=== PATIENT | male | born 1985 | race Caucasian/White ===

== ENCOUNTER → 2017-06-24 07:28 | Outpatient (CLI) | payer BC, SELFPAY ==
[2017-06-24 08:51] LABS: Cholesterol 125 mg/dL (200); Glucose 95 mg/dL (74-106); High Density Lipoprotein 37 mg/dL; Triglycerides 32 mg/dL; Very Low Density Lipoprotein 6 mg/dL (5-40)
== END ==
PROVIDERS: Family Provider Preventive Medicine Occupational Medicine; PCP Preventive Medicine Occupational Medicine; Visit Provider Preventive Medicine Occupational Medicine
DX: Z00.00 Encounter for general adult medical examination without abnormal findings (principal)
CPT/HCPCS: 36415; 80061; 82947

== ENCOUNTER 2019-01-09 21:57 | Emergency (ER) | payer OTHER, SELFPAY ==
[2019-01-09 21:58] VITALS: BP 114/76; PULSE 91; RESP 16; TEMP 37.7; O2SAT 96; BMI 28.7
--- NOTE | 2019-01-09 22:44 | ED.VIS.GEN ---
History of Present Illness Chief Complaint: Complaint Informant: Patient Onset: Days Context: Gradual Onset Timing: Continuous Narrative: Patient is a 33-year-old male with no past medical history presenting with worsening myalgias, dry skin and dysuria. Patient states he has had a symptoms for the past few days but is been worsening. He states the myalgias started first. Initially he thought it was just from working out but they have continued. Patient states he has pain from his head to his feet. He notes he has pain when he urinates but denies any hematuria or penile discharge. He denies associated fever but does report chills. No rash. No chest pain, shortness of breath or difficulty breathing. No cough or upper respiratory symptoms. No nausea, vomiting or bowel changes. Patient notes he was hunting with his dog and the dog had a lot of ticks on it but patient was unaware of any tick bites. Patient also states he was started on a water pill recently for his ears. He is not sure what it was but thinks it was started with a tea. He does report a history of kidney stones but states this does not feel like his prior kidney stones. He also states his doctor told him at one point he had a medullary sponge kidney. Patient has not taken anything for his pain prior to arrival. Prior similar symptoms: No Recent Illness/Hospitalization: No Past Medical History - Allergies and Home Meds Allergies/Adverse Reactions: Allergies No Known Allergies Allergy (Verified 01/09/19 21:59) Primary Care Physician: Jluis Pierce DO [Primary Care Provider] - Past Medical History: - - Medullary sponge kidney, kidney stones Surgical History: - - Facial surgery Smoking Status: Former smoker Review of Systems General: Reports: Chills, Malaise. Denies: Fever, Sweats Eyes: Denies: Visual changes - bilaterally, Diplopia ENT: Denies: Rhinorrhea, Sore throat Cardiovascular: Denies: Chest pain, Palpitations Respiratory: Denies: Dyspnea, Cough, Dyspnea on exertion Gastrointestinal: Denies: Abdominal pain, Nausea, Vomiting, Diarrhea, Melena, Hematochezia Genitourinary: Reports: Dysuria. Denies: Hematuria, Frequency Musculoskeletal: Reports: Myalgias. Denies: Arthralgias, Neck pain, Back pain, Swelling, Extremity Pain Skin: Reports: - - Dry skin. Denies: Rash, Wounds Neurological: Denies: Headache, Weakness, Numbness Physical Exam Vital Signs/Narrative: Vital Signs Temp Pulse Resp BP Pulse Ox 01/09/19 21:58 99.9 F H 91 16 114/76 96 Inital Vital Signs reviewed: Yes General: Well nourished, Well developed, No Acute Distress Head: Normocephalic, Atraumatic Eyes: Perrl, EOMI ENT: Moist mucous membranes, No rhinorrhea, TM's clear Neck: Supple, Nontender Cardiovascular: Regular rate, Regular rhythm, No murmurs Respiratory: No distress, CTA bilaterally, Chest nontender Abdomen: Soft, Nontender, Nondistended, Normal bowel sounds Back: Nontender, Normal Inspection. Negative for: CVA tenderness Extremities: Nontender, No edema Skin: Normal color, No rash Neurological: Alert, Oriented x3, Cranial nerves II-XII grossly intact, Normal Strength, Normal Sensation Psychological: Normal affect, Normal Mood Diagnostic/Tx/Re-eval Laboratory Data 01/09/19 01/09/19 01/09/19 22:55 22:55 22:55 WBC 13.5 H RBC 5.06 Hgb 14.9 Hct 44.8 MCV 88.5 MCH 29.4 MCHC 33.3 RDW Std Deviation 40.5 RDW Coeff of Marquis 12.4 Plt Count 309 MPV 10.3 Immature Gran % (Auto) 0.200 Neut % (Auto) 78.7 H Lymph % (Auto) 10.9 L [place] % (Auto) 9.7 Eos % (Auto) 0.2 Baso % (Auto) 0.3 Absolute Neuts (auto) 10.6 H Absolute Lymphs (auto) 1.46 Nucleated RBC % 0 Sodium 140 Potassium 3.6 Chloride 105 Carbon Dioxide 26.0 Anion Gap 9 BUN 21 H Creatinine 1.18 Estim Creat Clear Calc 91.94 Est GFR (MDRD) Af Amer 91 Est GFR (MDRD) Non-Af 76 BUN/Creatinine Ratio 17.8 Glucose 96 Calcium 9.0 Total Creatine Kinase 231 Urine Color Urine Clarity Urine pH Ur Specific [place] Urine Protein Urine Glucose (UA) Urine Ketones Urine Occult Blood Urine Nitrite Urine Bilirubin Urine Urobilinogen Ur Leukocyte Esterase Urine RBC Urine WBC Ur Squamous Epith Cells Urine Bacteria Urine Mucus Chlam trachomat DNA PCR N.gonorrhoeae DNA (PCR) 11/20/19 11/20/19 22:55 22:55 WBC RBC Hgb Hct MCV MCH MCHC RDW Std Deviation RDW Coeff of Marquis Plt Count MPV Immature Gran % (Auto) Neut % (Auto) Lymph % (Auto) [place] % (Auto) Eos % (Auto) Baso % (Auto) Absolute Neuts (auto) Absolute Lymphs (auto) Nucleated RBC % Sodium Potassium Chloride Carbon Dioxide Anion Gap BUN Creatinine Estim Creat Clear Calc Est GFR (MDRD) Af Amer Est GFR (MDRD) Non-Af BUN/Creatinine Ratio Glucose Calcium Total Creatine Kinase Urine Color Yellow Urine Clarity Clear Urine pH 8.0 Ur Specific [place] 1.015 Urine Protein 15 H Urine Glucose (UA) Normal Urine Ketones 5 H Urine Occult Blood Negative Urine Nitrite Negative Urine Bilirubin Negative Urine Urobilinogen 4 H Ur Leukocyte Esterase 100 H Urine RBC 0 SEEN Urine WBC 25-50 SEEN Ur Squamous Epith Cells 0-5 SEEN Urine Bacteria 1+ Urine Mucus 1+ Chlam trachomat DNA PCR Negative N.gonorrhoeae DNA (PCR) Negative - Medical Decision Making Patient is evaluated for dysuria and myalgias. He appears nontoxic and in no acute distress. Vital signs are grossly normal. Patient is well-appearing his abdomen is soft. Is not have any CVA tenderness. Patient denies any testicular pain or penile discharge. exam is deferred. Urinalysis does show leuk esterase as well as 1+ bacteria. This is consistent with his presentation and patient be treated for urinary tract infection. Urine culture sent. Gonorrhea and Chlamydia are negative. Patient has normal kidney function. He has a very minimally elevated white blood cell count. Patient is placed on a 7-day course of antibiotics which should also cover for pyelonephritis. It also possible the patient has a viral illness that is contributing to his generalized myalgias. Patient does not have any CVA tenderness. His abdomen is soft. Do not suspect ureterolithiasis or any acute intra-abdominal pathology. He is otherwise well-appearing. He is given a dose of Toradol and fluids for symptom control. Patient is given first dose of antibiotics in the emergency room. Patient is encouraged to rest and drink lots of fluids over the next few days. Patient is counseled on signs and symptoms requiring return to the emergency room. Patient verbalizes agreement and understand this plan. Patient discharged home in stable and improved condition. ED Disposition - Plan for ED Patient: Disposition: Home or Assisted Living Diagnosis: UTI (urinary tract infection), Myalgia Instructions: Bladder Infection, Male (Adult) Prescriptions: Cephalexin [Keflex] 500 mg PO Q12 #14 cap Prescription Printed Ibuprofen [Motrin] 600 mg PO Q8H PRN PRN #20 tab PRN Reason: Pain Or Fever Prescription Printed Referrals: Jluis Pierce DO [Primary Care Provider] - Additional Instructions: You have been diagnosed with a urinary tract infection. A culture has been sent. You will be contacted if we need to switch your antibiotics. Follow-up with your primary care doctor in the next few days. Drink plenty fluids. Take the Motrin as needed for your muscle aches and pains. Return the emergency room with any worsening symptoms.
[2019-01-09] MEDS: 0.9% Normal Saline 1,000 ML 1000 ML IV (22:57)
[2019-01-09 23:06] LABS: Red Blood Cells-Urine 0 SEEN /hpf (0-5)
[2019-01-09 23:08] LABS: Absolute Lymphocyte Count 1.46 X10^3/uL (0.83-4.51); Absolute Neutrophil Count 10.6 X10^3/uL (2.0-7.7); Basophil# 0.04 X10^3/uL; Basophil% 0.3 % (0-1); Eosinophil# 0.03 X10^3/uL; Eosinophils% 0.2 % (0-5); Hematocrit 44.8 % (40-54); Hemoglobin 14.9 g/dL (13.0-16.5); Lymphocyte # 1.46 X10^3/ul (4.0); Lymphocyte % 10.9 % (19-41); Mean Corp Hgb Conc 33.3 g/dL (32-36); Mean Corpuscular Hgb 29.4 pg (27.0-32.0); Mean Corpuscular Volume 88.5 fL (80-94); Mean Platelet Vol. 10.3 fl (6.2-12.0); Monocyte% 9.7 % (0-10); NRBC Flagged by Analyzer 0 % (0-5); Neutrophil # 10.59 X10^3/uL (2.7-7.7); Neutrophil % 78.7 % (47-70); Platelet Count 309 K/mm3 (150-450); RBC Distribution Width CV 12.4 % (11.6-14.6); RBC Distribution Width SD 40.5 fl (35.1-43.9); Red Blood Count 5.06 M/mm3 (4.6-6.2); White Blood Count 13.5 K/mm3 (4.4-11.0)
[2019-01-09 23:24] LABS: CPK Total, Creatine Kinase 231 U/L (39-308)
[2019-01-09 23:28] LABS: Color, Urine Yellow (Yellow); Glucose, Dipstick Normal (Normal); Ketone-Dipstick 5 mg/dl (Negative); Leukocyte Esterase-Dipstick 100 /ul (Negative); Nitrite-Dipstick Negative (Negative); Occult Blood-Urine Negative /ul (Negative); Protein-Dipstick 15 mg/dl (Negative); Specific Gravity, Urine 1.015 (1.002-1.030); Urine Bilirubin Dipstick Negative (Negative); Urine Clarity Clear (Clear); Urine Urobilinogen 4 mg/dl (Normal)
[2019-01-09 23:29] LABS: Anion Gap 9 (5-15); BUN 21 mg/dL (7-18); BUN/Creat Ratio 17.8 RATIO (10-20); Chloride 105 mmol/L (98-107); Creatinine, Serum 1.18 mg/dL (0.70-1.30); EST Glomerular Filtration Rate 76 mL/min (>60); Est Glom Filt Rate - Afr Amer 91 mL/min (>60); Estimated Creatinine Clearance 91.94 ml/min; Glucose 96 mg/dL (74-106); Potassium 3.6 mmol/L (3.5-5.1); Sodium Level 140 mmol/L (136-145)
--- NOTE | 2019-01-10 00:11 | ED.RN ---
SPOKE WITH LAB ABOUT BACK HALF OF URINE NOT RESULTED, SHE WILL LOOK INTO RESULTS.
[2019-01-10 00:15] LABS: Bacteria 1+ /hpf (None Seen); Mucous, Urine 1+ /hpf (<or=2+); Squamous Epithelial Cells - UA 0-5 SEEN /hpf (0-5); White Blood Cells 25-50 SEEN /hpf (0-5)
[2019-01-10] MEDS: Ketorolac 15 MG/ML Vial IV (00:17)
[2019-01-10 00:19] VITALS: BP 127/68; PULSE 81; RESP 16; O2SAT 98
[2019-01-10 00:58] LABS: Chlamydia Trachomatis by PCR Negative (Negative); Neisserai gonorrhoeae by PCR Negative (Negative); Probe Check PASS; Sample Adequacy Control PASS; Specimen Processing Control PASS
[2019-01-10 01:10] VITALS: BP 110/69; PULSE 79; RESP 16; O2SAT 96
[2019-01-10] MEDS: Cephalexin 250 MG Capsule 500 MG PO (01:12)
== END 2019-01-10 01:12 | disposition home or self-care (01) ==
PROVIDERS: Emergency Provider Emergency Medicine; Family Provider Preventive Medicine Occupational Medicine; PCP Preventive Medicine Occupational Medicine
DX: N39.0 Urinary tract infection, site not specified (principal); M79.10 Myalgia, unspecified site; Q61.5 Medullary cystic kidney; Z87.442 Personal history of urinary calculi; Z87.891 Personal history of nicotine dependence
CPT/HCPCS: 80048; 81001; 82550; 85025; 87086; 87088; 87491; 87591; 96361; 96374; 99284; J7030; A4216

== ENCOUNTER 2019-01-10 18:47 | Emergency (ER) | payer OTHER, SELFPAY ==
[2019-01-09 21:58] VITALS: BMI 28.7
[2019-01-10 18:48] VITALS: BP 128/70; PULSE 102; RESP 16; TEMP 36.4; O2SAT 95; BMI 28.7
[2019-01-10 18:56] VITALS: BP 120/70; PULSE 95; RESP 14; TEMP 36.1; O2SAT 98
[2019-01-10 19:31] LABS: Absolute Lymphocyte Count 0.71 X10^3/uL (0.83-4.51); Absolute Neutrophil Count 14.7 X10^3/uL (2.0-7.7); Basophil# 0.02 X10^3/uL; Basophil% 0.1 % (0-1); Hematocrit 40.1 % (40-54); Hemoglobin 13.5 g/dL (13.0-16.5); Lymphocyte # 0.71 X10^3/ul (4.0); Lymphocyte % 4.3 % (19-41); Mean Corp Hgb Conc 33.7 g/dL (32-36); Mean Corpuscular Hgb 29.9 pg (27.0-32.0); Mean Corpuscular Volume 88.7 fL (80-94); Mean Platelet Vol. 10.2 fl (6.2-12.0); Monocyte# 1.09 X10^3/uL; Monocyte% 6.6 % (0-10); NRBC Flagged by Analyzer 0 % (0-5); Neutrophil # 14.65 X10^3/uL (2.7-7.7); Neutrophil % 88.4 % (47-70); POSITIVE MORPHOLOGY YES; Platelet Count 240 K/mm3 (150-450); RBC Distribution Width CV 12.3 % (11.6-14.6); RBC Distribution Width SD 40.5 fl (35.1-43.9); Red Blood Count 4.52 M/mm3 (4.6-6.2); White Blood Count 16.6 K/mm3 (4.4-11.0)
[2019-01-10 19:35] LABS: Differential Indicated SCAN CRITERIA MET
[2019-01-10] MEDS: Acetaminophen 500 MG Tablet 1000 MG PO (19:35)
[2019-01-10] MEDS: 0.9% Normal Saline 1,000 ML 1000 ML IV ×2 (19:35→21:26)
[2019-01-10 19:46] LABS: Anion Gap 6 (5-15); BUN 16 mg/dL (7-18); BUN/Creat Ratio 16.1 RATIO (10-20); Chloride 108 mmol/L (98-107); Creatinine, Serum 0.99 mg/dL (0.70-1.30); EST Glomerular Filtration Rate 92 mL/min (>60); Est Glom Filt Rate - Afr Amer 112 mL/min (>60); Estimated Creatinine Clearance 109.58 ml/min; Glucose 131 mg/dL (74-106); Potassium 3.6 mmol/L (3.5-5.1); Sodium Level 139 mmol/L (136-145)
--- NOTE | 2019-01-10 19:47 | ED.VISSUMM ---
- ER Visit Summary Date of Service: 01/10/19 Chief Complaint: Generalized pain History of Present Illness: The patient is a 33 M who presents with generalized pain that is been getting worse over the past couple days. Patient states he was seen here last night and diagnosed with a urinary tract infection. Patient states he has been taking his antibiotics as prescribed. Patient states the has generalized aching. Patient denies any fevers or chills but does admit to some sweats today. Patient admits to nausea but denies any vomiting. Patient admits to some dysuria but denies any hematuria. Physical Examination: Vital signs are stable. Patient is afebrile. Patient is in no acute distress. Oral mucosa is pink and moist. Neck is supple. Trachea is midline. There is no JVD. Heart was regular rate and rhythm. Lungs are clear and equal bilaterally. Abdomen is soft. Bowel sounds are normal. There is no tenderness. There is no guarding or rebound noted. Cranial nerves II through XII are intact. There are no focal motor or sensory deficits noted. Test Results: CBC showed leukocytosis of 16.6. Basic metabolic profile was essentially within normal limits. Lactate was obtained and was normal. Emergency Department Course and Treatment: Patient was given IV fluids. Patient was still having some pain and discomfort after 1 L of fluids. Patient was given a second liter. Patient was also given a dose of Rocephin. Patient felt better after this. Patient was instructed to drink plenty of fluids. Patient was instructed to continue his antibiotics as prescribed until gone. Patient was instructed to follow-up with his primary care physician in 3 to 5 days. Patient understood and was agreeable with the plan. All questions were answered. Disposition: Discharge home Impression: 1. Myalgias 2. Urinary tract infection This note was generated with [email or web address] dictation software. It may contain incorrect words, spelling, and punctuation that were not noted in review of the chart prior to signing ED Disposition - Plan for ED Patient: Disposition: Home or Assisted Living Diagnosis: UTI (urinary tract infection), Myalgia Instructions: Bladder Infection, Male (Adult) Referrals: Jluis Pierce DO [Primary Care Provider] - 3-5 Days
[2019-01-10 20:00] LABS: Platelet Estimate ADEQUATE (ADEQ)
[2019-01-10 20:01] LABS: Red Cell Morphology NORM C+C NORMAL (NORM C&C)
[2019-01-10] MEDS: Ketorolac 30 MG/ML Syringe IV (21:18)
[2019-01-10] MEDS: Ceftriaxone 1 GM/50 ML BAG IV (21:19)
[2019-01-10 21:40] LABS: Lactic Acid 0.8 mmol/L (0.4-2.0)
[2019-01-10 22:40] VITALS: BP 115/70; PULSE 92; RESP 16; O2SAT 98
[2019-01-11 10:53] LABS: Pathologist Review Reviewed
== END 2019-01-10 22:44 | disposition home or self-care (01) ==
PROVIDERS: Emergency Provider Emergency Medicine; Family Provider Preventive Medicine Occupational Medicine; PCP Preventive Medicine Occupational Medicine
DX: M79.10 Myalgia, unspecified site (principal); N39.0 Urinary tract infection, site not specified; R05 Cough
CPT/HCPCS: 80048; 83605; 85025; 96361; 96365; 96375; 99283; J7030; A4216

== ENCOUNTER 2021-03-24 16:32 | Outpatient (CLI) | payer OTHER, SELFPAY ==
--- NOTE | 2021-03-24 16:41 | MRI_ITS ---
STUDY: MRI BRAIN WITH AND WITHOUT CONTRAST REASON FOR EXAM: Male, 35 years old. HEADACHES X 2 MONTHS TECHNIQUE: Standardized multiplanar fat and water weighted pulse sequences were obtained. 18ML IV DOTAREM was administered for the contrast portion of the examination. COMPARISON: None. FINDINGS: Normal size of the ventricles and extra-axial spaces for the patient''s age. Normal white matter tracts of the supratentorial brain. Normal bilateral basal ganglia. Normal thalami. There is no extra-axial fluid accumulation. Normal flow voids within the major intracranial circulation suggesting patency by spin echo criteria. Normal venous enhancement. There is no enhancing intra-axial or extra-axial abnormality. Normal sella turcica, pituitary gland, infundibular stalk, optic chiasm and hypothalamus. Normal tectal plate and pineal gland. Normal midbrain, abraham and medulla. Normal cerebellum. Normal basal cisterns. MRI/Brain W/WO Contrast IMPRESSION: Unremarkable unenhanced and enhanced MRI of the brain. Electronically Signed: Armida Caceres MD at 15:54 EST ,
== END 2021-03-24 23:59 | disposition short-term general hospital (02) ==
PROVIDERS: PCP Preventive Medicine Occupational Medicine; Visit Provider Psychiatry & Neurology Neurology
DX: R51.9 Headache, unspecified (principal)
CPT/HCPCS: 70553; A9575

== ENCOUNTER → 2021-11-17 | Outpatient (CLI) | payer OTHER, SELFPAY ==
--- NOTE | 2021-11-17 09:32 | NM_ITS ---
CLINICAL: 35-year-old male with history of low back discomfort. WHOLE BODY 99m Tc MDP RADIONUCLIDE BONE SCINTIGRAPHY COMPARISON: None available FINDINGS: Following the intravenous administration of 27.0 mCi of 99m Tc MDP, whole body bone images reveal: 1. Mild symmetric radiopharmaceutical concentration is defined in the acromioclavicular compartments of both shoulders, subtly defined in the patellofemoral compartment of the right knee, the bilateral hands. 2. The remaining skeletal structures are scintigraphically unremarkable with normal-appearing renal images and urinary bladder activity identified. NM/Bone Scan Whole Body IMPRESSION: 1. 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 2. No other scintigraphic abnormalities are defined with meticulous attention paid to the thoracic lumbar spine. Electronically Signed: Angel Fu, at 22:09 EDT ,
== END | disposition home or self-care (01) ==
PROVIDERS: PCP Preventive Medicine Occupational Medicine
DX: M51.36 Other intervertebral disc degeneration, lumbar region (principal)
CPT/HCPCS: 78306; A9503

== ENCOUNTER 2022-02-14 08:49 | Observation (INO) | payer OTHER, SELFPAY ==
[2022-02-14] VITALS (10 sets, daily range): BP systolic 111–133; BP diastolic 69–80; PULSE 58–70; RESP 12–18; TEMP 36.4–36.7; O2SAT 97–100; BMI 28.5; BMI 26.6
--- NOTE | 2022-02-14 08:58 | RAD_ITS ---
EXAM: XR CHEST, 1 VIEW CLINICAL INDICATION: Neuro deficit, acute, stroke suspected TECHNIQUE: Frontal view of the chest. This report was created using [employer] report generation technology. COMPARISON: 10/08/2013. FINDINGS: LUNGS AND PLEURAL SPACES: The lungs are clear. No pneumothorax. No effusion. HEART: Unremarkable. Cardiac silhouette not enlarged. MEDIASTINUM: Central airways and mediastinal contour are unremarkable. BONES/JOINTS: Unremarkable. SOFT TISSUES: Unremarkable. RAD/Chest 1 View IMPRESSION: Normal chest radiograph and unchanged since 10/08/2013. Electronically Signed: Mahad Matthew MD at 9:26 EST ,
--- NOTE | 2022-02-14 08:58 | CT_ITS ---
We are attempting to reach an attending provider to discuss findings. An addendum with communication details will be sent when the communication is complete. EXAM: CT HEAD WITHOUT INTRAVENOUS CONTRAST CLINICAL INDICATION: Neuro deficit, acute, stroke suspected -- Acute headache, unable to use left side, resolved TECHNIQUE: Multiple axial images were obtained of the head without intravenous contrast. This CT exam was performed using one or more of the following dose reduction techniques: automated exposure control, adjustment of the mA and/or kV according to patient size, and/or use of iterative reconstruction technique. This report was created using [employer] report Vokle technology. COMPARISON: None. FINDINGS: BRAIN AND EXTRA-AXIAL SPACES: Unremarkable. No intra- or extra-axial hemorrhage. No evidence of acute infarct. No intracranial mass or mass effect. There is preservation of the man/white matter interface. Posterior fossa structures are unremarkable. Ventricles are appropriate for age. No hydrocephalus. Basal cisterns are patent. BONES/JOINTS: Unremarkable. No discrete lytic or blastic abnormalities. SINUSES: Unremarkable as visualized. Clear. MASTOID AIR CELLS: Unremarkable. Clear. ORBITS: Visualized globes, extraocular muscles, optic nerves and retrobulbar fat appear unremarkable. CT/STROKE Brain/Head without Cont IMPRESSION: 1. Negative head/brain CT without intravenous contrast at this time. 2. Total ASPECTS score: 10/10. Electronically Signed: Mahad Matthew MD at 10:00 EST ,
--- NOTE | 2022-02-14 08:59 | CT_ITS ---
We are attempting to reach an attending provider to discuss findings. An addendum with communication details will be sent when the communication is complete. STUDY: CTA HEAD AND NECK WITH CONTRAST REASON FOR EXAM: Male, 36 years old. Neuro deficit, acute, stroke suspected RADIATION DOSAGE (If Supplied By Facility): CTDIvol = ( 23.23 ) mGy, DLP = ( 690.26 ) mGycm TECHNIQUE: CT angiography was performed with a multi-detector CT scanner. Data acquisition was obtained from the skull base through the vertex following intravenous administration of IV 100mL [id number]-[id number]. MIP images were reconstructed from the axial data set. Post-processing of the angiographic images was performed, with multiplanar reformation and 3D reconstruction. Individualized dose optimization techniques were used for this CT. COMPARISON: No relevant priors. FINDINGS: Normal bilateral petrous carotid arteries. Normal right cavernous carotid artery with a normal supraclinoid bifurcation. Normal left cavernous carotid artery with a normal supraclinoid bifurcation. Normal right A1 segment of the anterior cerebral artery. Normal left A1 segment of the anterior cerebral artery. Normal intact anterior communicating artery (ACOM). Normal bilateral A2 segments of the anterior cerebral arteries. Normal right M1 and M2 segments of the middle cerebral arteries, with a normal M1 bifurcation. Normal left M1 and M2 segments of the middle cerebral arteries, with a normal M1 bifurcation. No visible right posterior communicating artery (PCOM). No visible left posterior communicating artery (PCOM). Normal bilateral vertebral arteries. Normal basilar artery with a normal basilar bifurcation. The visualized bilateral superior cerebellar (SCA) arteries are normal. Normal bilateral P1, P2 and visualized P3 segments of the posterior cerebral arteries. There is no demonstrated aneurysm of the [place]. There is no demonstrated abnormality of the visualized brain. AORTIC ARCH: Normal visualized aortic arch. Normal origins of the brachiocephalic, left common carotid, and left subclavian arteries. RIGHT CAROTID ARTERIES: Normal right common carotid artery (CCA). Normal right carotid bulb. Normal origin of the right internal carotid (ICA) artery without a hemodynamically significant stenosis. Normal visualized cervical portion of the right internal carotid artery. Normal origin of the right external carotid artery (ECA). LEFT CAROTID ARTERIES: Normal left common carotid artery (CCA). Normal left carotid bulb. Normal origin of the left internal carotid (ICA) artery without a hemodynamically significant stenosis. Normal visualized cervical portion of the left internal carotid artery. Normal origin of the left external carotid artery (ECA). VERTEBRAL ARTERIES: Normal bilateral vertebral arteries. CT/STROKE CTA Head AND Neck W/Con IMPRESSION: Normal CTA Head and neck with contrast. Electronically Signed: Mahad Matthew MD at 10:02 [facility] ,
--- NOTE | 2022-02-14 09:07 | ED.VIS.STROK ---
HPI History of Present Illness Chief Complaint: Neuro S/Sx Detail of Chief Complaint: Numbness entire left side and loss of function arm and leg Informant: patient and spouse/S.O. Onset/Context/Timing Onset: Today and Hours Context: Sudden Onset Timing: Intermittent (Lasted approximately 5 minutes) Quality and Location: Positive for Left Face Parasthesia, Left Arm Parasthesia, Left Leg Parasthesia, Left Arm Weakness and Left Leg Weakness Onset: 814 Current Severity: Gone Maximum Severity: Severe Worsened by: Nothing Relieved by: Nothing Associated Symptoms Associated Symptoms: Positive for Headache; Negative for Nausea, Vomiting or Chest Pain Narrative Narrative: Patient is a 36-year-old male who is on Adderall. He denies recent head trauma. He denies family history of subarachnoid hemorrhage. He reports he still has a headache but is not as severe. He denies photophobia, neck pain or neck stiffness. His left-sided symptoms have resolved. Duration of left-sided symptoms 5 minutes. There was no reported problems with speech. He denies history of fast heart rate or irregular heart rate. There is no family history to his knowledge of stroke early age. He presently has no symptoms. Other than the headache and the numbness and inability to use left leg when this occurred he had no other symptoms. Prior similar symptoms: No Recent Illness/Hospitalization: No PFSH PFSH Medical History no medical history Home Medications triamterene 37.5 mg-hydrochlorothiazide 25 mg capsule 1 tab PO DAILY 01/09/19 [History Last Taken Unknown] cephalexin 500 mg capsule 500 mg PO Q12 #14 caps 01/10/19 [Rx Last Taken Unknown] ibuprofen 600 mg tablet 600 mg PO Q8H PRN PRN Pain Or Fever #20 tabs 01/10/19 [Rx Last Taken Unknown] Allergy/AdvReac Type Severity Reaction Status Date / Time No Known Allergies Allergy Verified 01/09/19 21:59 Social History (Updated 02/14/22 @ 09:[address] Joseph Wilkes MD) household members: spouse and children Smoking Status: Never smoker substance use type: does not use ROS ROS ED Constitutional Constitutional ED: Denies chills, fever(s) or subjective Eyes Eyes: Denies blurry vision, change in vision or diplopia ENT ENT ED: Denies ear pain, rhinorrhea or sore throat Cardiovascular Cardiovascular: Denies chest pain, palpitations, paroxysmal nocturnal dyspnea or racing heartbeat Respiratory/Chest Respiratory/Chest: Denies cough, dyspnea, dyspnea on exertion or paroxysmal nocturnal dyspnea Gastrointestinal Gastrointestinal: Denies abdominal pain, nausea or vomiting Genitourinary Genitourinary ED: Denies dysuria or hematuria Musculoskeletal Musculoskeletal: Denies arthralgias, back pain, myalgias or neck pain Integumentary Denies abscess, Abrasions or rash Neurologic Neurologic: Reports headache(s), paresthesias, weakness and other Details: Neuro symptoms other than headache has resolved. Psychiatric Psychiatric: Denies anxiety or depression Endocrine Endocrinology: Denies polydipsia, polyphagia or polyuria Hematologic/Lymphatic Hematologic/Lymphatic: Denies easy bleeding or easy bruising EXAM Physical Exam Const Vital Signs: 02/14/22 08:51 02/14/22 08:58 02/14/22 09:12 Temperature 97.6 F L Temperature Source Temporal Pulse Rate 65 58 L Respiratory Rate 15 15 Blood Pressure 133/80 H 131/79 H Blood Pressure Mean 97 96 Pulse Ox 100 99 Oxygen Delivery Method Room Air Room Air Room Air Positive well nourished and well developed; Negative for cachectic, contractures or unkempt Constitutional Narrative: Head is normocephalic. Ears normal. Nares patent. No septal deviation hematoma noted. No dental trauma. General Appearance ED: well developed and NAD; Negative for unkempt, cachectic or contractures Nutritional Appearance: Negative for cachectic HEENT Reports moist mucous membranes atraumatic Eyes PERRL and EOMs intact bilaterally Eyes Narrative: There is no nystagmus. General Eye ED: Yes scleral icterus; Negative for pale conjunctiva Neck no lymphadenopathy, supple and no JVD General: Negative for tenderness Chest Wall inspection of chest normal and palpation of chest normal Resp normal respiratory effort and clear to auscultation bilaterally Cardio no murmurs Rate: regular rate Rhythm: regular rhythm Heart Sounds: S1 normal and S2 normal GI normal to inspection, nondistended, normoactive bowel sounds, soft to palpation, non-tender, non-distended and no masses Back/Spine no CVA tenderness Extremity normal to inspection General Extremety ED: Negative for deformity, edema or tenderness General Extremity: Negative for deformity or edema Neuro oriented x3, CN's II-XII intact bilaterally and no sensory deficits noted Harwood Coma Scale: document GCS findings Spontaneous Obeys Commands Oriented 15 Sensorium / Orientation: alert Speech: speech normal Motor Exam: strength 5/5 throughout Psych mental status grossly normal Appearance: Negative for unkempt Skin no wounds General Skin Exam: Negative for jaundice Lesions: no lesions Rashes: no rashes Trauma: Negative for abrasion NIHSS NIHSS Initial: 1a Level of Consciousness: 0 1b LOC Questions (Score 2 if aphasic/stupor): 0 1c LOC Commands (Only score 1st attempt): 0 2 Best Gaze (If aphasic, use reflexive mvmts.): 0 3 Visual: 0 4 Facial Palsy: 0 5 Motor Arm Right (UN = amputation/fusion): 0 5 Motor Arm Left: 0 6 Motor Leg Right: 0 6 Motor Leg Left: 0 7 Limb ataxia (Only + if out of proportion): 0 8 Sensory (Aphasia/stupor=0 or 1, coma=2): 0 9 Best Language: 0 10 Dysarthria (mute, coma=2, intubated=UN): 0 11 Extinction and Inattention (only scored if +): 0 Total Score: 0 MDM MDM MDM Narrative Medical decision making narrative: Patient presents with paresthesia and loss of function of the left side. Concerned this represents a TIA. With complaint of headache need to evaluate for subarachnoid hemorrhage. Stroke order set was initiated. Stroke team was not called because patient's NIH is 0. Lab Data Attestation: I reviewed the patient's lab results. Lab results narrative: CBC is normal. Platelet count is normal. Coags are normal. Electrolyte panel is unremarkable. Troponin is normal. CT and CTA of the head neck were unremarkable. I did receive call from radiologist. Patient will probably need a bubble test if MRI is negative. Will contact hospitalist for admission. Labs: Laboratory Results - last 24 hr 02/14/22 02/14/22 02/14/22 09:10 09:10 09:10 WBC 5.2 RBC 4.71 Hgb 14.6 Hct 42.0 MCV 89.2 MCH 31.0 MCHC 34.8 RDW Std Deviation 40.0 RDW Coeff of Marquis 12.1 Plt Count 296 MPV 9.8 Immature Gran % (Auto) 0.000 Neut % (Auto) 51.1 Lymph % (Auto) 36.5 Mclennan % (Auto) 9.5 Eos % (Auto) 2.3 Baso % (Auto) 0.6 Absolute Neuts (auto) 2.7 Absolute Lymphs (auto) 1.91 Nucleated RBC % 0 PT 13.6 INR 1.1 APTT 28.0 Sodium 139 Potassium 4.3 Chloride 108 H Carbon Dioxide 28.0 Anion Gap 3 L BUN 17 Creatinine 0.95 Estim Creat Clear Calc 110.99 Est GFR (MDRD) Af Amer 116 Est GFR (MDRD) Non-Af 96 BUN/Creatinine Ratio 18.0 Glucose 106 Calcium 8.9 Troponin I High Sens 4 Radiography Diagnostic Testing: Clinical Impression(s) from Imaging Studies Brain CT 02/14/22 08:58 IMPRESSION: 1. Negative head/brain CT without intravenous contrast at this time. 2. Total ASPECTS score: 10/10. Electronically Signed: Mahad Matthew MD at 10:00 EST Reading Location ID and State: [facility] / [place] , Service support , ADDENDUM: 02/14/22 1012 IMPRESSION: 1. Negative head/brain CT without intravenous contrast at this time. 2. Total ASPECTS score: 10/10. N.B. : The above Results were Read Back by Mahad Matthew MD to [facility] and understanding confirmed on 02/14/2022 10:05:54 (ET). Electronically Signed: Mahad Matthew MD at 10:00 EST Reading Location ID and State: [facility] / [place] , Service support , Chest X-Ray 02/14/22 08:58 IMPRESSION: Normal chest radiograph and unchanged since 10/08/2013. Electronically Signed: Mahad Matthew MD at 9:26 EST , Head/Neck CTA 02/14/22 08:59 IMPRESSION: Normal CTA Head and neck with contrast. Electronically Signed: Mahad Matthew MD at 10:02 EST , ADDENDUM: 02/14/22 1012 IMPRESSION: Normal CTA Head and neck with contrast. N.B. : The above Results were Read Back by Mahad Matthew MD to Joseph Wilkes MD, and understanding confirmed on 02/14/2022 10:05:42 (ET). Electronically Signed: Mahad Matthew MD at 10:02 EST , Single view portable chest x-ray was independently interpreted by me at 0921 is normal. Cardiac silhouette and size normal. Perihilar region normal. Lung parenchyma normal. Osseous structures are unremarkable. EKG Initial EKG: Interpretation: Sinus Bradycardia (Rate is 57. There is evidence of early repolarization. The EKG is unchanged from September 20, 2008. MN interval is 174 ms. QS duration 92 ms. QT duration 392 ms. Kennard is normal.) Stroke Documentation Questions Stroke Team Activated: No Reviewed Inclusion/Exclusion criteria: Yes IV Alteplase (t-PA) Administered: No No contraindications for IV Alteplase (t-PA) administration.: No Alteplase (t-PA) risks, benefits, alternative discussed: No Discharge Plan Dx/Rx/DC Orders Clinical Impression: Brain TIA, BP (high blood pressure), Bradycardia, sinus Disposition Disposition: Acute Care Hospital [facility]
[2022-02-14 09:15] LABS: Absolute Lymphocyte Count 1.91 X10^3/uL (0.83-4.51); Absolute Neutrophil Count 2.7 X10^3/uL (2.0-7.7); Basophil# 0.03 X10^3/uL; Basophil% 0.6 % (0-1); Eosinophil# 0.12 X10^3/uL; Eosinophils% 2.3 % (0-5); Hemoglobin 14.6 g/dL (13.0-16.5); Lymphocyte # 1.91 X10^3/ul (0.83-4.51); Lymphocyte % 36.5 % (19-41); Mean Corp Hgb Conc 34.8 g/dL (32-36); Mean Corpuscular Volume 89.2 fL (80-94); Mean Platelet Vol. 9.8 fl (6.2-12.0); Monocyte% 9.5 % (0-10); NRBC Flagged by Analyzer 0 % (0-5); Neutrophil # 2.68 X10^3/uL (2.7-7.7); Neutrophil % 51.1 % (47-70); Platelet Count 296 K/mm3 (150-450); RBC Distribution Width CV 12.1 % (11.6-14.6); Red Blood Count 4.71 M/mm3 (4.6-6.2); White Blood Count 5.2 K/mm3 (4.4-11.0)
[2022-02-14 09:24] LABS: International Normalized Ratio 1.1; Prothrombin Time (Protime)PT. 13.6 SECONDS (11.7-14.9)
[2022-02-14 09:33] LABS: Anion Gap 3 (5-15); BUN 17 mg/dL (7-18); Calcium,Total 8.9 mg/dL (8.5-10.1); Chloride 108 mmol/L (98-107); Creatinine, Serum 0.95 mg/dL (0.70-1.30); EST Glomerular Filtration Rate 96 mL/min (>60); Est Glom Filt Rate - Afr Amer 116 mL/min (>60); Estimated Creatinine Clearance 110.99 ml/min; Glucose 106 mg/dL (74-106); Potassium 4.3 mmol/L (3.5-5.1); Sodium Level 139 mmol/L (136-145); Troponin-I HS 4 pg/mL (3.0-78.0)
--- NOTE | 2022-02-14 09:36 | ED.RN ---
ALL NIH'S ARE NEG. PER DR. LAGUNA, D/C [place].
--- NOTE | 2022-02-14 11:31 | MRI_ITS ---
STUDY: MRI BRAIN WITHOUT CONTRAST REASON FOR EXAM: Male, 36 years old. TIA, left sided weakness TECHNIQUE: Standardized multiplanar fat and water weighted pulse sequences were obtained. COMPARISON: MRI to, CT earlier today FINDINGS: Normal size of the ventricles and extra-axial spaces for the patient''s age. Normal white matter tracts of the supratentorial brain. There is no evidence for recent intracranial ischemia or other cause of cytotoxic edema on diffusion weighted imaging (DWI). Normal T2* images of the brain without demonstrated susceptibility artifact. There is no demonstrated hemosiderin stain. Normal bilateral basal ganglia. Normal thalami. There is no extra-axial fluid accumulation. Normal flow voids within the major intracranial circulation suggesting patency by spin echo criteria. Normal sella turcica, pituitary gland, infundibular stalk, optic chiasm and hypothalamus. Normal tectal plate and pineal gland. Normal midbrain, abraham and medulla. Normal cerebellum. Normal basal cisterns. Normal bilateral temporal bones. Normal bilateral internal auditory canals. No demonstrated orbital abnormality, within the constraints of a routine brain study. Normal visualized paranasal sinuses. Normal calvarium and skull base. Normal visualized soft tissue structures. Normal visualized upper cervical spine. MRI/Brain without Contrast IMPRESSION: Normal unenhanced MRI of the brain. Electronically Signed: Angel Rosas MD at 15:00 EST ,
--- NOTE | 2022-02-14 11:31 | ECHOD_ITS ---
Reason For Study: TIA/STROKE Procedure This was a 2D Doppler, Color Flow transthoracic echocardiogram. Exam performed portable in patient room. Left Ventricle Normal left ventricle. The left ventricular ejection fraction is 65 %. Normal diastololic function. Right Ventricle Normal right ventricle. Atria The left and right atria are normal. Inconclusive bubble contrast study for PFO. Consider ADIN for further evalaution if clinically indicated. Mitral Valve The mitral valve is structurally normal. No prolapse or stenosis seen. Tricuspid Valve Normal tricuspid valve. Aortic Valve Normal aortic valve. Pulmonic Valve The pulmonic valve is not well visualized. Great Vessels Normal sized aortic root. Pericardium/Pleural No pericardial effusion. Medication Performed a rapid injection of agitated mix of 9 cc saline and 1cc air to assess for atrial septal defect. MMode/2D Measurements & Calculations LVIDd: 4.9 cm IVSd: 0.57 cm Ao root diam: 2.9 cm LVIDs: 3.6 cm LVPWd: 0.85 cm RVDd: 2.7 cm FS: 26.3 % LVAd ap4: 30.3 cm2 SV(MOD-sp4): 49.1 ml SV(sp4-el): 52.5 ml LVLd ap4: 8.9 cm EDV(MOD-sp4): 85.0 ml EDV(sp4-el): 87.7 ml LVAs ap4: 17.6 cm2 LVLs ap4: 7.5 cm ESV(MOD-sp4): 35.9 ml ESV(sp4-el): 35.2 ml EF(MOD-sp4): 57.7 % EF(sp4-el): 59.9 % LA A4 area: 15.2 cm2 LA dimension(2D): 2.8 cm RA A4 area: 11.6 cm2 Time Measurements MV dec time: 0.23 sec Doppler Measurements & Calculations MV E max mu: 67.9 cm/sec Lat Peak E' Mu: 16.2 cm/sec Med Peak E' Mu: 11.8 cm/sec MV A max mu: 35.4 cm/sec E/E' lat: 4.2 E/E' med: 5.8 MV E/A: 1.9 MV V2 max: 71.7 cm/sec Ao V2 max: 102.0 cm/sec MV max P.1 mmHg MV dec slope: 296.5 cm/sec2 Ao max P.2 mmHg MV V2 mean: 38.1 cm/sec Ao V2 mean: 71.9 cm/sec MV mean P.68 mmHg Ao mean P.4 mmHg MV V2 VTI: 26.0 cm Ao V2 VTI: 23.0 cm AV (velocity ratio): 0.92 LV V1 max: 96.1 cm/sec PA V2 max: 73.4 cm/sec LV V1 max P.7 mmHg PA V2 mean: 50.0 cm/sec LV V1 mean P.0 mmHg LV V1 mean: 64.6 cm/sec LV V1 VTI: 21.2 cm ECHO/Echo Complete Interpretation Summary The left ventricular ejection fraction is 65 %. Inconclusive bubble contrast study for PFO. Consider ADIN for further evalaution if clinically indicated. Ordering Physician: Karmen Vilchis Referring Physician: MD Kari Jluis Performed By: Annette Mike RCS
--- NOTE | 2022-02-14 11:32 | PCM.HP.STD ---
HPI - General General Date of Admission: 02/14/22 Date of Service: 02/14/22 Chief Complaint: Left-sided numbness and weakness HPI Narrative REINALDO WARE, is a 36 M with history of BPH, sinus bradycardia, ADHD who presented to [facility] 02/14/2022 after a 10-minute episode of left-sided weakness and numbness. He reported at 815 he was carrying his baby and began to have left leg weakness and unsteadiness followed by left arm weakness and numbness at which time he fell, this lasted 5 to 10 minutes and resolved completely. Presented to the ER and had NIH of 0, given concerning symptoms and possibility of TIA hospitalist consulted for admission. Patient evaluated at bedside with his family, does endorse the roughly 5 minutes of left-sided weakness and numbness and fall, denies any injuries when he fell. Did not hit his head. Did have a global headache after he fell that resolved prior to presentation to the ER. Did not note any slurred speech, changes in vision, no other neurological complaints. Denies changes in bowel or bladder, denies any recent medication changes, denies alcohol and drug use. CTA in the ED was negative, EKG showed sinus bradycardia which reportedly he has a history of. Not high seem ox. Will admit for TIA work-up [facility] Medical History (Updated 02/14/22 @ 11:[address] Karmen Vilchis MD) Kidney stones Medical History no medical history Home Medications ibuprofen 600 mg tablet 600 mg PO Q8H PRN PRN Pain Or Fever #20 tabs 01/10/19 [Rx Last Taken Unknown] dextroamphetamine-amphetamine 15 mg tablet 15 mg PO BID 02/14/22 [History Last Taken 02/14/22] tamsulosin 0.4 mg capsule 0.4 mg PO DAILY bladder 02/14/22 [History Last Taken 02/14/22] Allergy/AdvReac Type Severity Reaction Status Date / Time No Known Allergies Allergy Verified 01/09/19 21:59 Social History (Updated 02/14/22 @ 09:[address] Joseph Wilkes MD) household members: spouse and children Smoking Status: Former smoker substance use type: does not use ROS Constitutional Constitutional: Denies change in weight, chills, fever(s) or night sweats Eyes Eyes: Denies change in vision ENT HEENT: Reports other Details: Brief headache after fall we will was global and resolved on its own ; Denies nasal congestion or sore throat Cardiovascular Cardiovascular: Denies chest pain or palpitations Respiratory/Chest Respiratory/Chest: Denies cough or productive cough Gastrointestinal Gastrointestinal: Reports other Details: denies changes in bowel or bladder ; Denies abdominal pain Genitourinary Genitourinary: Reports other Details: Reports chronic problems with urination and is on tamsulosin Musculoskeletal Musculoskeletal: Denies joint pain Neurologic Neurologic: Reports other Details: Left-sided leg and arm numbness and weakness which resolved after 5 minutes, had brief residual tingling in left leg but also resolved, no other neurologic ; Denies dizziness Psychiatric Psychiatric: Reports other Details: Has ADHD Hematologic/Lymphatic Hematologic/Lymphatic: Denies easy bleeding Allergic/Immunologic Allergic/Immunologic: Reports other Details: denies rashes Vital Signs Vital Signs Vital Signs: 02/14/22 08:51 02/14/22 08:58 02/14/22 09:12 Temperature 97.6 F L Temperature Source Temporal Pulse Rate 65 58 L Respiratory Rate 15 15 Blood Pressure 133/80 H 131/79 H Blood Pressure Mean 97 96 Pulse Ox 100 99 Oxygen Delivery Method Room Air Room Air Room Air 02/14/22 10:19 Temperature 98 F Temperature Source Temporal Pulse Rate 60 Respiratory Rate 12 Blood Pressure 119/69 Blood Pressure Mean 85 Pulse Ox 100 Oxygen Delivery Method Room Air Weight Weight: 90.1 kg Body Mass Index (BMI) 28.5 Physical Exam Const alert and no apparent distress Constitutional Narrative: Oriented HEENT normocephalic and head/scalp atraumatic Eyes Eyes Narrative: EOM grossly intact, anicteric Neck supple Resp normal respiratory effort and clear to auscultation bilaterally Cardio regular rate and regular rhythm GI soft to palpation, non-tender and non-distended Extremity Extremity Narrative: No edema appreciated Neuro moves all extremities Neuro Narrative: Strength equal bilaterally and 5/5, reflexes symmetric, [id number] without difficulty, extraocular movements intact, cranial nerves II through XII intact Psych Psych Narrative: Cooperative Results Lab / Micro Data Result Diagrams: 02/14/22 09:10 02/14/22 09:10 Labs: Laboratory Results - last 24 hr 02/14/22 09:10: WBC 5.2, RBC 4.71, Hgb 14.6, Hct 42.0, MCV 89.2, MCH 31.0, MCHC 34.8, RDW Std Deviation 40.0, RDW Coeff of Marquis 12.1, Plt Count 296, MPV 9.8, Immature Gran % (Auto) 0.000, Neut % (Auto) 51.1, Lymph % (Auto) 36.5, Kleberg % (Auto) 9.5, Eos % (Auto) 2.3, Baso % (Auto) 0.6, Absolute Neuts (auto) 2.7, Absolute Lymphs (auto) 1.91, Nucleated RBC % 0 02/14/22 09:10: PT 13.6, INR 1.1, APTT 28.0 02/14/22 09:10: Sodium 139, Potassium 4.3, Chloride 108 H, Carbon Dioxide 28.0, Anion Gap 3 L, BUN 17, Creatinine 0.95, Estim Creat Clear Calc 110.99, Est GFR (MDRD) Af Amer 116, Est GFR (MDRD) Non-Af 96, BUN/Creatinine Ratio 18.0, Glucose 106, Calcium 8.9, Troponin I High Sens [address] 02/14/22 08:58 IMPRESSION: 1. Negative head/brain CT without intravenous contrast at this time. 2. Total ASPECTS score: 1010. Electronically Signed: Mahad Matthew MD at 10:00 EST Reading Location ID and State: [facility] / [place] , Service support , ADDENDUM: 02/14/22 1012 IMPRESSION: 1. Negative head/brain CT without intravenous contrast at this time. 2. Total ASPECTS score: 10/10. N.B. : The above Results were Read Back by Mahad Matthew MD to Joseph Wilkes and understanding confirmed on 02/14/2022 10:05:54 (ET). Electronically Signed: Mahad Matthew MD at 10:00 EST , Chest X-Ray 02/14/22 08:58 IMPRESSION: Normal chest radiograph and unchanged since 10/08/2013. Electronically Signed: Mahad Matthew MD at 9:26 EST , Head/Neck CTA 02/14/22 08:59 IMPRESSION: Normal CTA Head and neck with contrast. Electronically Signed: Mahad Matthew MD at 10:02 EST , ADDENDUM: 02/14/22 1012 IMPRESSION: Normal CTA Head and neck with contrast. N.B. : The above Results were Read Back by Mahad Matthew MD to Joseph Wilkes MD, and understanding confirmed on 02/14/2022 10:05:42 (ET). Electronically Signed: Mahad Matthew MD at 10:02 EST , Assessment & Plan Assessment/Plan (1) Left-sided weakness: PLAN: Plan #Left sided numbness and weakness Concern for TIA, symptoms resolved after 5 to 10 minutes and no residual symptoms tPA candidate: No given NIH of 0 CT/CTA head and neck unremarkable MRI ordered Echo ordered Admit to telemetry NIH every 4 hours Trop within normal limits, EKG sinus bradycardia which apparently is chronic, no blocks appreciated No hypoxia, no hypoglycemia Aspirin, statin, ABCD risk of 3, Plavix not indicated at this time A1c, lipid panel, TSH in a.m. PT/OT/bed side swallow eval After further work-up obtained May need neurology consult, will await MRI and echo #History of BPH On tamsulosin #ADHD Takes dextroamphetamine?amphetamine at home, will hold this time #DVT ppx: Low risk, encourage ambulation, SCDs Karmen Vilchis MD Charges/Coding Visit Charges OBSV E&M: 59586 Initial observation care L2
[2022-02-14 12:45] LABS: AST(SGOT) 12 U/L (15-37); Alanine Aminotransfer ALT/SGPT 20 U/L (16-61); Albumin, Serum 3.8 g/dL (3.2-5.0); Alkaline Phosphatase 36 U/L (45-117); Bilirubin, Direct 0.29 mg/dL (0.00-0.30); Globulin 3.1 g/dL (2.2-4.2); Protein, Total 6.9 g/dL (6.4-8.2)
[2022-02-14 18:28] LABS: Amphetamine Urine VISTA POSITIVE (<1000 ng/mL); Barbiturate Urine VISTA NEGATIVE (< 200 ng/mL); Benzodiazepine Urine VISTA NEGATIVE (< 200 ng/mL); Cocaine Urine VISTA NEGATIVE (< 300 ng/mL); Ecstacy Urine VISTA NEGATIVE (< 500 ng/mL); Methadone Urine VISTA NEGATIVE (< 300 ng/mL); PCP Urine VISTA NEGATIVE (< 25 ng/mL); THC Urine VISTA NEGATIVE (< 50 ng/mL); Vista UDS pH Range 6
--- NOTE | 2022-02-14 19:14 | TELEMED_ITS ---
[facility] Tele[facility] has confirmed receipt of a request for visit. This document confirms receipt of the order initiating the consult. To find the results of the consultation, please view the patient's reports for the scanned Telemed Consult.
[2022-02-14] MEDS: Atorvastatin Calcium 80 MG Tablet PO (21:03)
[2022-02-15] VITALS (8 sets, daily range): BP systolic 109–122; BP diastolic 69–74; PULSE 54–67; RESP 16–18; TEMP 36.4–36.7; O2SAT 96–99; BMI 26.6
[2022-02-15 07:08] LABS: Absolute Lymphocyte Count 1.87 X10^3/uL (0.83-4.51); Absolute Neutrophil Count 2.3 X10^3/uL (2.0-7.7); Basophil# 0.05 X10^3/uL; Eosinophil# 0.11 X10^3/uL; Eosinophils% 2.2 % (0-5); Hematocrit 44.2 % (40-54); Hemoglobin 14.3 g/dL (13.0-16.5); Lymphocyte # 1.87 X10^3/ul (0.83-4.51); Lymphocyte % 38.1 % (19-41); Mean Corp Hgb Conc 32.4 g/dL (32-36); Mean Corpuscular Hgb 29.4 pg (27.0-32.0); Mean Corpuscular Volume 90.9 fL (80-94); Mean Platelet Vol. 10.3 fl (6.2-12.0); Monocyte# 0.55 X10^3/uL; Monocyte% 11.2 % (0-10); NRBC Flagged by Analyzer 0 % (0-5); Neutrophil # 2.32 X10^3/uL (2.7-7.7); Neutrophil % 47.3 % (47-70); Platelet Count 314 K/mm3 (150-450); RBC Distribution Width CV 12.4 % (11.6-14.6); RBC Distribution Width SD 41.2 fl (35.1-43.9); Red Blood Count 4.86 M/mm3 (4.6-6.2); White Blood Count 4.9 K/mm3 (4.4-11.0)
[2022-02-15 07:40] LABS: ALB/GLOB Ratio 1.4 RATIO (0.9-2.4); AST(SGOT) 11 U/L (15-37); Alanine Aminotransfer ALT/SGPT 18 U/L (16-61); Albumin, Serum 3.8 g/dL (3.2-5.0); Alkaline Phosphatase 33 U/L (45-117); Anion Gap 6 (5-15); BUN 14 mg/dL (7-18); BUN/Creat Ratio 15.8 RATIO (10-20); Calcium,Total 8.7 mg/dL (8.5-10.1); Chloride 107 mmol/L (98-107); Cholesterol 124 mg/dL (200); Creatinine, Serum 0.88 mg/dL (0.70-1.30); EST Glomerular Filtration Rate 104 mL/min (>60); Est Glom Filt Rate - Afr Amer 125 mL/min (>60); Estimated Creatinine Clearance 119.82 ml/min; Globulin 2.8 g/dL (2.2-4.2); Glucose 109 mg/dL (74-106); High Density Lipoprotein 35 mg/dL; Potassium 3.7 mmol/L (3.5-5.1); Protein, Total 6.6 g/dL (6.4-8.2); Sodium Level 138 mmol/L (136-145); Thyroid Stim Hormone (TSH) 1.26 uIU/mL (0.358-3.74); Triglycerides 64 mg/dL; Very Low Density Lipoprotein 13 mg/dL (5-40)
[2022-02-15 07:45] LABS: Hemoglobin A1c 5.4 % (3.8-5.6)
[2022-02-15] MEDS: 0.9% Saline Lock 10 ML Syringe IV (08:53)
[2022-02-15] MEDS: Aspirin 81 MG TAB.CHEW PO (08:53)
[2022-02-15 09:30] LABS: International Normalized Ratio 1.1; Prothrombin Time (Protime)PT. 13.6 SECONDS (11.7-14.9)
--- NOTE | 2022-02-15 15:50 | ECHOTEE_ITS ---
Reason For Study: Assess for PFO/ASD, TIA/CVA Medication ADIN probe 6VT-D (SN [id number]) passed without difficulty. No complications were noted. Cetacaine Topical Monette given X3 orally. Versed 2 mg given slow IVP. Fentanyl 100 mcg given slow IVP. Performed a rapid injection of agitated mix of 9 cc saline and 1cc air to assess for atrial septal defect. Left Ventricle Normal left ventricle. Left ventricular systolic function is normal. The estimated ejection fraction is 65 %. Right Ventricle Normal RV size. Normal systolic function. Atria No doppler evidence for ASD. Bubble contrast study negative for right to left interatrial shunt. Normal left atrium. There is no sponatenous contrast in the left atrium. No thrombus is detected in the left atrial appendage. Normal right atrium. There is no sponatenous contrast in the right atrium. Right atrial/appendage thrombus identified. Mitral Valve There is no mitral annular calcification. Mild mitral valve prolapse, posterior leaflet. Trivial mitral valve insufficiency. Tricuspid Valve Normal tricuspid valve. Trivial tricuspid valve insufficiency. Aortic Valve Trisinus/trileaflet aortic valve. Normal aortic valve. Trivial eccentric aortic valve insufficiency. Pulmonic Valve The pulmonic valve is not well visualized. Trivial pulmonic valve insufficiency. Vessels Normal-appearing thoracic aorta. Pericardium No pericardial effusion. ECHO/Echo Transesophageal (ADIN) Interpretation Summary Left ventricular systolic function is normal. The estimated ejection fraction is 65 %. There is no sponatenous contrast in the left atrium. No thrombus is detected in the left atrial appendage. Mild mitral valve prolapse, posterior leaflet Trivial mitral valve insufficiency. Trivial tricuspid valve insufficiency. Trivial eccentric aortic valve insufficiency. Trivial pulmonic valve insufficiency. Bubble contrast study negative for right to left interatrial shunt. Ordering Physician: Karmen Vilchis Referring Physician: Jluis Pierce Performed By: Laura Pena RDCS
--- NOTE | 2022-02-15 15:50 | PCM.PN.HOSP ---
Subjective Subjective Feeling better today, no present deficits and has not had recurrence of symptoms since admission Objective Data Objective Data Vital Signs: Vital Signs Temp Pulse Resp BP Pulse Ox O2 Del Method 97.9 F 67 18 120/69 98 Room Air 02/15/22 14:56 02/15/22 14:56 02/15/22 14:56 02/15/22 14:56 02/15/22 14:56 02/15/22 14:56 Oxygen Delivery Method Room Air Weight: 84.4 kg Body Mass Index (BMI) 26.6 Intake & Output: Intake and Output for Last 24 Hours 02/13/22 02/14/22 02/15/22 23:59 23:59 23:59 Intake Total 620 / 1100 900 / 900 Balance 620 / 1100 900 / 900 Lab / Micro Data Result Diagrams: 02/15/22 05:50 02/15/22 05:50 Labs: Laboratory Results - last 24 hr 02/14/22 17:26: Urine Opiates Screen NEGATIVE, Urine Methadone Screen NEGATIVE, Ur Barbiturates Screen NEGATIVE, Ur Phencyclidine Scrn NEGATIVE, Ur Amphetamines Screen POSITIVE H, MDMA (Ecstasy) Screen NEGATIVE, U Benzodiazepines Scrn NEGATIVE, Urine Cocaine Screen NEGATIVE, U Cannabinoids Screen NEGATIVE, Ur Drug Screen Comment 02/15/22 05:50: Sodium 138, Potassium 3.7, Chloride 107, Carbon Dioxide 25.0, Anion Gap 6, BUN 14, Creatinine 0.88, Estim Creat Clear Calc 119.82, Est GFR (MDRD) Af Amer 125, Est GFR (MDRD) Non-Af 104, BUN/Creatinine Ratio 15.8, Glucose 109 H, Calcium 8.7, Total Bilirubin 1.00, AST 11 L, ALT 18, Alkaline Phosphatase 33 L, Total Protein 6.6, Albumin 3.8, Globulin 2.8, Albumin/Globulin Ratio 1.4, Triglycerides 64, Cholesterol 124, LDL Cholesterol 76, VLDL Cholesterol 13, HDL Cholesterol 35 L, TSH 1.26 02/15/22 05:50: PT 13.6, INR 1.1 02/15/22 05:50: WBC 4.9, RBC 4.86, Hgb 14.3, Hct 44.2, MCV 90.9, MCH 29.4, MCHC 32.4 D, RDW Std Deviation 41.2, RDW Coeff of Marquis 12.4, Plt Count 314, MPV 10.3, Immature Gran % (Auto) 0.200, Neut % (Auto) 47.3, Lymph % (Auto) 38.1, [place] % (Auto) 11.2 H, Eos % (Auto) 2.2, Baso % (Auto) 1.0, Absolute Neuts (auto) 2.3, Absolute Lymphs (auto) 1.87, Nucleated RBC % 0 02/15/22 05:50: Hemoglobin A1c 5.4 Radiography Diagnostic Testing: Radiology Impression Echocardiogram 02/14/22 11:31 Interpretation Summary The left ventricular ejection fraction is 65 %. Inconclusive bubble contrast study for PFO. Consider ADIN for further evalaution if clinically indicated. Ordering Physician: Karmen Vilchis Referring Physician: MD Jluis Pierce Performed By: Annette Mike RCS Physical Exam Const alert and no apparent distress Constitutional Narrative: Oriented HEENT normocephalic and head/scalp atraumatic Eyes Eyes Narrative: EOM grossly intact, anicteric Neck supple Resp normal respiratory effort and clear to auscultation bilaterally Cardio regular rate and regular rhythm GI soft to palpation, non-tender and non-distended Extremity Extremity Narrative: No edema appreciated Neuro moves all extremities Neuro Narrative: No overt focal deficits appreciated Psych Psych Narrative: Cooperative Assessment & Plan Assessment/Plan (1) Left-sided weakness: PLAN: Plan #Left sided numbness and weakness Concern for TIA, symptoms resolved after 5 to 10 minutes and no residual symptoms tPA candidate: No given NIH of 0 CT/CTA head and neck unremarkable MRI ordered Echo ordered Admit to telemetry NIH every 4 hours Trop within normal limits, EKG sinus bradycardia which apparently is chronic, no blocks appreciated No hypoxia, no hypoglycemia Aspirin, statin, ABCD risk of 3, Plavix not indicated at this time A1c, lipid panel, TSH in a.m. PT/OT/bed side swallow eval After further work-up obtained May need neurology consult, will await MRI and echo 02/15: Neurology recommended MRV, MRI of the C-spine, EEG. They felt if his echo had a negative bubble study this could probably be done as an outpatient however his TTE was inconclusive for PFO. Discussed with patient and given his significant concerning neurological symptoms prior to admission will order ADIN for more definitive evaluation as well as the MRV, MRI C-spine and EEG. #History of BPH On tamsulosin #ADHD Takes dextroamphetamine?amphetamine at home, will hold this time #DVT ppx: Low risk, encourage ambulation, SCDs Karmen Vilchis MD Charges/Coding Visit Charges OBSV E&M: 79733 Subsequent observation care L2
--- NOTE | 2022-02-15 18:40 | MRI_ITS ---
INDICATION: presented w/ left hemiparesis, neuro recs EXAMINATION: MRV- MRV Head W/O Contrast TECHNIQUE: Routine MR venogram of the brain including 3D time of flight was performed without gadolinium. 3D reconstructions were reviewed. IV Contrast Dosage and Agent: None. COMPARISON 02/14/2022: None. FINDINGS: Superior sagittal sinus: Patent, no thrombus appreciated Internal cerebral veins: Patent, no thrombus appreciated Straight sinus: Patent, no thrombus appreciated Transverse sinuses: Patent, no thrombus appreciated Sigmoid sinuses: Patent, no thrombus appreciated Other veins: No anomalous collateral veins MRI/MRV Head Without Contrast IMPRESSION: Unremarkable MRV of the head. Electronically Signed: Wicho Dumas MD at 20:15 EST ,
--- NOTE | 2022-02-15 18:58 | MRI_ITS ---
INDICATION: presented w/ TIA sx left hemiparesis, neuro recs EXAMINATION: MRI - MR Spine Cervical WO/W Contrast TECHNIQUE: Multiplanar and multisequence MR images of the cervical spine were performed. IV Contrast Dosage and Agent: 17 cc Clariscan COMPARISON: 02/14/2022 CTA FINDINGS: CERVICAL VERTEBRAE: Normal vertebral bodies and posterior elements. VERTEBRAL ALIGNMENT: Normal, including the craniocervical junction and cervicothoracic junction. No spondylolisthesis. Reversal of the typical cervical lordosis is centered on C4. CERVICAL SPINAL CORD: Unremarkable in signal and morphology. No abnormal enhancement. C2/C3: Normal disc height and morphology. Normal spinal canal and neuroforamina. C3/C4: Small disc bulge with mass effect on the ventral cord. Uncovertebral hypertrophy. Mild left neural foraminal stenosis. No spinal canal stenosis. C4/C5: Small disc bulge with mass effect on the ventral cord. Uncovertebral hypertrophy. Mild left neural foraminal stenosis. No spinal canal stenosis. C5/C6: Small disc bulge with uncovertebral hypertrophy. Mild spinal canal stenosis and mass effect on the cord. Moderate left spinal canal stenosis C6/C7: Small disc bulge. Mild bilateral neural foraminal stenosis. No spinal canal stenosis. C7/T1: Normal disc height and morphology. Normal spinal canal and neuroforamina. NECK SOFT TISSUES: No prevertebral soft tissue swelling. There is no cervical adenopathy. MRI/Spine Cervical W/WO Contrast IMPRESSION: 1. Multilevel neural foraminal stenosis, greater on the left. 2. Mild spinal canal stenosis at C5-6. No abnormal cord signal. Electronically Signed: Wicho Dumas MD at 20:11 EST ,
[2022-02-15] MEDS: Atorvastatin Calcium 80 MG Tablet PO (22:59)
[2022-02-16] VITALS (9 sets, daily range): BP systolic 105–129; BP diastolic 68–72; PULSE 55–90; RESP 16–17; TEMP 36.6; O2SAT 94–99; BMI 26.6
--- NOTE | 2022-02-16 08:00 | NURSING ---
Emergency Documentation effective 02/16 @ 0800.
[2022-02-16 08:31] LABS: Absolute Lymphocyte Count 1.56 X10^3/uL (0.83-4.51); Basophil# 0.05 X10^3/uL; Basophil% 0.8 % (0-1); Eosinophil# 0.12 X10^3/uL; Eosinophils% 1.9 % (0-5); Hematocrit 44.7 % (40-54); Hemoglobin 14.9 g/dL (13.0-16.5); Lymphocyte # 1.56 X10^3/ul (0.83-4.51); Lymphocyte % 24.8 % (19-41); Mean Corp Hgb Conc 33.3 g/dL (32-36); Mean Corpuscular Hgb 30.5 pg (27.0-32.0); Mean Corpuscular Volume 91.6 fL (80-94); Monocyte# 0.61 X10^3/uL; Monocyte% 9.7 % (0-10); NRBC Flagged by Analyzer 0 % (0-5); Neutrophil # 3.95 X10^3/uL (2.7-7.7); Neutrophil % 62.6 % (47-70); Platelet Count 297 K/mm3 (150-450); RBC Distribution Width CV 12.3 % (11.6-14.6); RBC Distribution Width SD 41.1 fl (35.1-43.9); Red Blood Count 4.88 M/mm3 (4.6-6.2); White Blood Count 6.3 K/mm3 (4.4-11.0)
[2022-02-16 09:01] LABS: ALB/GLOB Ratio 1.2 RATIO (0.9-2.4); AST(SGOT) 10 U/L (15-37); Alanine Aminotransfer ALT/SGPT 18 U/L (16-61); Albumin, Serum 3.6 g/dL (3.2-5.0); Alkaline Phosphatase 33 U/L (45-117); Anion Gap 3 (5-15); BUN 13 mg/dL (7-18); BUN/Creat Ratio 12.9 RATIO (10-20); Calcium,Total 8.8 mg/dL (8.5-10.1); Chloride 107 mmol/L (98-107); Creatinine, Serum 1.01 mg/dL (0.70-1.30); EST Glomerular Filtration Rate 89 mL/min (>60); Est Glom Filt Rate - Afr Amer 107 mL/min (>60); Globulin 3.1 g/dL (2.2-4.2); Glucose 99 mg/dL (74-106); Protein, Total 6.7 g/dL (6.4-8.2); Sodium Level 139 mmol/L (136-145)
[2022-02-16 09:35] LABS: International Normalized Ratio 1.2; Prothrombin Time (Protime)PT. 14.5 SECONDS (11.7-14.9)
[2022-02-16] MEDS: Aspirin 81 MG TAB.CHEW PO (10:51)
--- NOTE | 2022-02-16 14:52 | DCINST_ITS ---
Discharge Instructions Diet Discharge Diet: No restrictions Activity Discharge Activity: - (He discussion while driving but otherwise return to normal activity) Follow Up Care Test Results: Test results from this visit will be discussed in further detail at your follow- up appointment, if applicable. Discharge Plan Admission Admit Date/Time: 02/14/22 11:18 Primary Reason for Your Visit: Left sided weakness and numbness Attending Provider: Karmen Vilchis Primary Care Provider: Jluis Pierce Instructions Patient Instructions: What Is a Partial Seizure? Additional Instructions / Restrictions: *Please take this with you to your next doctors appointment* ?You are found to have abnormal activity on your EEG, neurology is recommended that you are started on Keppra 750 mg twice daily, a prescription for this was sent to the [facility] in [place] per your preference ? Given that Adderall can lower the seizure threshold it is advised that you take half a tablet twice a day until you discuss with your neurologist ?Given your presentation and lack of further episodes neurology reports that you will be able to drive but to use caution ? Please follow-up with your neurologist, Dr. Richardson Cook, in [facility] upon discharge. Please call upon discharge to schedule your follow-up appointment -Please call your primary care provider's office upon discharge to schedule a hospital follow up within 1 week. -For any concerning signs or symptoms please call 911 or proceed to the nearest emergency department Discharge Orders/Prescriptions Prescriptions: New levetiracetam [Keppra] 750 mg tablet 750 mg PO BID Qty: 60 0RF Continued ibuprofen 600 MG tablet 600 mg PO Q8H PRN PRN (Reason: Pain Or Fever) Qty: 20 0RF tamsulosin 0.4 mg capsule 0.4 mg PO DAILY Changed dextroamphetamine-amphetamine 15 mg tablet 7.5 mg PO BID 30 Days Qty: 30 0RF Referrals / Follow Up: Richardson Cook MD [Med Staff - Consulting] - See Referral Note (Please call upon discharge to schedule your follow-up appointment) Jluis Pierce DO [Primary Care Provider] - Within 1 Week Disposition Disposition (needs filled in before D/C Order can be placed): Home, Self Care
--- NOTE | 2022-02-16 15:08 | PCM.DC.SUM ---
Providers Date of Admission: 02/14/22 Date of Discharge: 02/16/22 Primary Care Physician: Dr. Jluis Pierce DO Reason For Visit: TIA Diagnosis Discharge Diagnosis (1) Left-sided weakness: Status: Acute Code(s): R53.1 - Weakness Plan #Partial seizures #BPH #ADHD Medications at Discharge Home Medications ibuprofen 600 mg tablet 600 mg PO Q8H PRN PRN Pain Or Fever #20 tabs 01/10/19 tamsulosin 0.4 mg capsule 0.4 mg PO DAILY bladder 02/14/22 dextroamphetamine-amphetamine 15 mg tablet 7.5 mg PO BID 30 days #30 tabs 02/16/22 levetiracetam 750 mg tablet (Keppra) 750 mg PO BID #60 tabs 02/16/22 Hospital Course Procedures - (EEG, TTE, ADIN, MRI, MRV) Summary of Care Provided Minutes Spent on Discharge: 35 Hospital Course: REINALDO WARE, is a 36 M with history of BPH, sinus bradycardia, ADHD who presented to [facility] 02/14[facility]2022 after a 10-minute episode of left-sided weakness and numbness. In the ED CT angio was negative, EKG showed sinus bradycardia which was his baseline, hospitalist contacted for TIA work-up. TIA work-up overall unremarkable with no arrhythmia, MRI unremarkable, neurology recommended if TTE was normal to discharge on aspirin and statin and follow-up outpatient for EEG MRV and MR C-spine however TTE was indeterminant so ADIN was ordered. Given patient was still admitted EEG and MRV as well as MR C-spine were ordered. MRI is unremarkable but EEG did in fact show abnormal discharges in the right hemisphere. Discussed with neurology and they felt that this very well could have been a seizure, given the april she said he did not have to hold off on driving for 3 to 6 months but that caution was advised and she would start him on Keppra. On day of discharge she denied any chest pain or shortness of breath, no focal complaints, no other complaints. Discussed with the patient and his , discharge instructions as below: *Please take this with you to your next doctors appointment* ?You are found to have abnormal activity on your EEG, neurology is recommended that you are started on Keppra 750 mg twice daily, a prescription for this was sent to the [facility] in [place] per your preference ? Given that Adderall can lower the seizure threshold it is advised that you take half a tablet twice a day until you discuss with your neurologist ?Given your presentation and lack of further episodes neurology reports that you will be able to drive but to use caution ? Please follow-up with your neurologist, Dr. Richardson Cook, in [facility] upon discharge.? Please call upon discharge to schedule your follow-up appointment -Please call your primary care provider's office upon discharge to schedule a hospital follow up within 1 week. -For any concerning signs or symptoms please call 911 or proceed to the nearest emergency department Physical Exam Const alert and no apparent distress Constitutional Narrative: Oriented HEENT normocephalic and head/scalp atraumatic Eyes Eyes Narrative: EOM grossly intact, anicteric Neck supple Resp normal respiratory effort and clear to auscultation bilaterally Cardio regular rate and regular rhythm GI soft to palpation, non-tender and non-distended Extremity Extremity Narrative: No edema appreciated Neuro moves all extremities Neuro Narrative: No overt focal deficits appreciated Psych Psych Narrative: Cooperative Weight / BMI Weight Weight: 84.4 kg Body Mass Index (BMI) 26.6 ABG / Lab / Microbiology Data Result Diagrams: 02/16/22 07:36 02/16/22 07:36 Laboratory: Laboratory Results - last 24 hr 02/16/22 07:36: WBC 6.3, RBC 4.88, Hgb 14.9, Hct 44.7, MCV 91.6, MCH 30.5, MCHC 33.3, RDW Std Deviation 41.1, RDW Coeff of Marquis 12.3, Plt Count 297, MPV 10.0, Immature Gran % (Auto) 0.200, Neut % (Auto) 62.6, Lymph % (Auto) 24.8, [place] % (Auto) 9.7, Eos % (Auto) 1.9, Baso % (Auto) 0.8, Absolute Neuts (auto) 4.0, Absolute Lymphs (auto) 1.56, Nucleated RBC % 0 02/16/22 07:36: PT 14.5, INR 1.2 02/16/22 07:36: Sodium 139, Potassium 4.0, Chloride 107, Carbon Dioxide 29.0, Anion Gap 3 L, BUN 13, Creatinine 1.01, Estim Creat Clear Calc 104.40, Est GFR (MDRD) Af Amer 107, Est GFR (MDRD) Non-Af 89, BUN/Creatinine Ratio 12.9, Glucose 99, Calcium 8.8, Total Bilirubin 1.20 H, AST 10 L, ALT 18, Alkaline Phosphatase 33 L, Total Protein 6.7, Albumin 3.6, Globulin 3.1, Albumin/Globulin Ratio 1.2 Microbiology: Microbiology 02/16/22 08:05 Nasal Secretion SARS-CoV-2 Antigen (Rapid) - Final Radiography Diagnostic Testing: Radiology Impression Echocardiogram 02/14/22 11:31 Interpretation Summary The left ventricular ejection fraction is 65 %. Inconclusive bubble contrast study for PFO. Consider ADIN for further evalaution if clinically indicated. Ordering Physician: Karmen Vilchis Referring Physician: MD Jluis Pierce Performed By: Annette Mike RCS Transesophageal Echocardiogram 02/15/22 15:50 Interpretation Summary Left ventricular systolic function is normal. The estimated ejection fraction is 65 %. There is no sponatenous contrast in the left atrium. No thrombus is detected in the left atrial appendage. Mild mitral valve prolapse, posterior leaflet Trivial mitral valve insufficiency. Trivial tricuspid valve insufficiency. Trivial eccentric aortic valve insufficiency. Trivial pulmonic valve insufficiency. Bubble contrast study negative for right to left interatrial shunt. Ordering Physician: Karmen Vilchis Referring Physician: Jluis Pierce Performed By: Laura Pena RDCS Brain MRI 02/15/22 18:40 IMPRESSION: Unremarkable MRV of the head. Electronically Signed: Wicho Dumas MD at 20:15 EST , Cervical Spine MRI 02/15/22 18:58 IMPRESSION: 1. Multilevel neural foraminal stenosis, greater on the left. 2. Mild spinal canal stenosis at C5-6. No abnormal cord signal. Electronically Signed: Wicho Dumas MD at 20:11 EST , D/C Instructions Discharge Diet: No restrictions Meaningful Use Info Meaningful Use Diagnoses (Choose all that apply): None applicable Discharge Plan Admission Admit Date/Time: 02/14/22 11:18 Primary Reason for Your Visit: Left sided weakness and numbness Attending Provider: Karmen Vilchis Primary Care Provider: Jluis Pierce Instructions Forms: Work Excuse, Work / School Excuse Patient Instructions: What Is a Partial Seizure? Additional Instructions / Restrictions: *Please take this with you to your next doctors appointment* ?You are found to have abnormal activity on your EEG, neurology is recommended that you are started on Keppra 750 mg twice daily, a prescription for this was sent to the [facility] per your preference ? Given that Adderall can lower the seizure threshold it is advised that you take half a tablet twice a day until you discuss with your neurologist ?Given your presentation and lack of further episodes neurology reports that you will be able to drive but to use caution ? Please follow-up with your neurologist, Dr. Richardson Cook, in [facility] upon discharge. Please call upon discharge to schedule your follow-up appointment -Please call your primary care provider's office upon discharge to schedule a hospital follow up within 1 week. -For any concerning signs or symptoms please call 911 or proceed to the nearest emergency department Patient Problems: Altered Health Status related to Hospitalization Patient Goals: *Optimal Level of Health *Keep Appointments *Medication Compliance *Remain Safe Discharge Orders/Prescriptions Prescriptions: New levetiracetam [Keppra] 750 mg tablet 750 mg PO BID Qty: 60 0RF Continued ibuprofen 600 MG tablet 600 mg PO Q8H PRN PRN (Reason: Pain Or Fever) Qty: 20 0RF tamsulosin 0.4 mg capsule 0.4 mg PO DAILY Changed dextroamphetamine-amphetamine 15 mg tablet 7.5 mg PO BID 30 Days Qty: 30 0RF Referrals / Follow Up: Richardson Cook MD [Med Staff - Consulting] - See Referral Note (Please call upon discharge to schedule your follow-up appointment) Jluis Pierce DO [Primary Care Provider] - Within 1 Week Disposition Disposition (needs filled in before D/C Order can be placed): Home, Self Care Charges/Coding Visit Charges OBSV E&M: 53726 Observation care discharge
== END 2022-02-16 16:00 | disposition home or self-care (01) ==
LOC: ED 10:28 → PCU 12:35
PROVIDERS: Admitting Provider Internal Medicine; Emergency Provider Emergency Medicine; PCP Preventive Medicine Occupational Medicine; Visit Provider Internal Medicine
DX: R56.9 Unspecified convulsions (principal); R53.1 Weakness; R03.0 Elevated blood-pressure reading, without diagnosis of hypertension; R00.1 Bradycardia, unspecified; R51.9 Headache, unspecified; Z87.891 Personal history of nicotine dependence; F90.9 Attention-deficit hyperactivity disorder, unspecified type; N40.0 Benign prostatic hyperplasia without lower urinary tract symptoms; Z79.899 Other long term (current) drug therapy; R20.0 Anesthesia of skin; R29.818 Other symptoms and signs involving the nervous system; R29.700 NIHSS score 0; I08.3 Combined rheumatic disorders of mitral, aortic and tricuspid valves
CPT/HCPCS: 36415; 70450; 70496; 70498; 70544; 70551; 71045; 72156; 80048; 80053; 80061; 80076; 80307; 83036; 84443; 84484; 85025; 85610; 85730; 87426; 93005; 93306; 93312; 93320; 93325; 94762; 95819; 99218; 99285; A9575; J7040; Q9967; A4216; G0378